=== PATIENT | female | born 1990 | race African-American/Black ===

== ENCOUNTER 2017-07-07 11:27 | Emergency (ER) | payer MEDICAID, OTHER ==
[~2017-07-07] VITALS: Ht 157.5 cm; Wt 54.4 kg
[2017-07-07 11:49] VITALS: BP 103/66
[2017-07-07 12:39] LABS: Hematocrit 39.4 % (36.0-46.0); Hemoglobin 12.8 g/dL (12.2-16.2); Mean Corpuscular Hemoglobin 27.8 pg (28.0-32.0); Mean Corpuscular Hgb Conc. 32.4 g/dL (32.0-36.0); Mean Corpuscular Volume 85.7 fL (80.0-100.0); Mean Platelet Volume 10.8 fL (6.9-10.8); Platelet Count (auto) 246 10^3/uL (140-450); Red Cell Distribution Width 15.8 % (11.8-14.3); White Blood Cell 4.3 10^3/uL (4.4-10.8)
[2017-07-07 12:42] LABS: Metamyelocytes % 0; Myelocytes % 0; Promyelocytes % 0; Reactive Lymphocytes 0
[2017-07-07 13:00] LABS: Albumin 4.6 g/dL (3.4-5.0); BUN/Creatinine Ratio 15.6; Bilirubin, Total 0.6 mg/dL (0.2-1.0); Calcium 8.9 mg/dL (8.5-10.1); Potassium 3.6 mmol/L (3.5-5.1); Total Protein 8.4 g/dL (6.4-8.2)
[2017-07-07 15:21] LABS: Platelet Estimate Adequate
== END 2017-07-07 17:04 | disposition left against medical advice (07) ==
LOC: ER 11:27
DX: N93.9 Abnormal uterine and vaginal bleeding, unspecified (principal); R56.9 Unspecified convulsions
CPT/HCPCS: 36415; 80053; 84702; 85007; 85027

== ENCOUNTER 2017-07-08 12:00 | Emergency (ER) | payer MEDICAID ==
[~2017-07-08] VITALS: Ht 172.7 cm; Wt 54.4 kg
[2017-07-08] MEDS ORDERED: SODIUM CHLORIDE 0.9% 1,000 ML IVB ONE (12:22)
[2017-07-08 13:14] LABS: Hematocrit 39.9 % (36.0-46.0); Hemoglobin 12.8 g/dL (12.2-16.2); Mean Corpuscular Hemoglobin 27.7 pg (28.0-32.0); Mean Corpuscular Hgb Conc. 32.2 g/dL (32.0-36.0); Mean Corpuscular Volume 86.2 fL (80.0-100.0); Mean Platelet Volume 10.1 fL (6.9-10.8); Platelet Count (auto) 212 10^3/uL (140-450); Red Cell Distribution Width 15.8 % (11.8-14.3); White Blood Cell 4.5 10^3/uL (4.4-10.8)
[2017-07-08 13:25] LABS: Metamyelocytes % 0; Myelocytes % 0; Promyelocytes % 0; Reactive Lymphocytes 0
[2017-07-08 13:29] LABS: Albumin 4.3 g/dL (3.4-5.0); BUN/Creatinine Ratio 17.8; Bilirubin, Total 0.6 mg/dL (0.2-1.0); Potassium 3.6 mmol/L (3.5-5.1); Total Protein 8.1 g/dL (6.4-8.2)
[2017-07-08 13:50] LABS: Platelet Estimate Adequate; Stomatocytes Few
[2017-07-08] MEDS ORDERED: HYDROcodone-ACET 5/325MG TAB PO ONE (16:45)
[2017-07-08 17:26] VITALS: BP 103/69
== END 2017-07-08 19:01 | disposition home or self-care (01) ==
LOC: ER 12:00 → EDBD 12:00 → ER 19:01
DX: S22.32XA Fracture of one rib, left side, initial encounter for closed fracture (principal); S05.00XA Injury of conjunctiva and corneal abrasion without foreign body, unspecified eye, initial encounter; Z88.8 Allergy status to other drugs, medicaments and biological substances; Y04.0XXA Assault by unarmed brawl or fight, initial encounter
CPT/HCPCS: 36415; 71101; 76856; 80053; 82962; 84702; 85007; 85027; 94761; 96360